=== PATIENT | female | born 1935 | race Caucasian/White ===

== ENCOUNTER 2020-12-08 09:02 | Emergency (ER) | payer MEDICARE ==
[~2020-12-08] VITALS: Ht 162.6 cm; Wt 68.4 kg
[2020-12-08 09:03] VITALS: BP 158/80
--- NOTE | 2020-12-08 09:12 | NUR ---
PT AMBULATORY TO ROOM FROM TRIAGE. PT C/O RIGHT EYE PAIN WITH PERIORBITAL TENDERNESS FOR THE LAST 2 DAYS. PT HAS BEEN USING DROPS FOR THE LAST 4 WEEKS PER HER PCP, AND WAS TOLD TO DO WARM COMPRESSES BUT PAIN HAS INCREASED THE LAST 2 DAYS.
--- NOTE | 2020-12-08 09:24 | NUR ---
PA AT BS
[2020-12-08] MEDS ORDERED: FLUORESCEIN OPHTHALMIC 1 MG STRIP ONE (09:36)
[2020-12-08] MEDS ORDERED: PROPARACAINE OPHTH 0.5%, 15ML ONE (09:36)
[2020-12-08] MEDS ORDERED: PROPARACAINE OPHTH 0.5%, 15ML EACHEYE ONE (10:00)
[2020-12-08] MEDS ORDERED: PLEASE ENTER ALLERGIES MC SCH (10:00)
[2020-12-08] MEDS ORDERED: FLUORESCEIN OPHTHALMIC 1 MG STRIP EACHEYE ONE (10:00)
--- NOTE | 2020-12-08 10:01 | NUR ---
PT AMBULATORY WITH UPRIGHT STEADY GAIT TO GET VISUAL ACUITY CHECKED
--- NOTE | 2020-12-08 10:10 | NUR ---
PA AT BS FOR DC EDUCATION
--- NOTE | 2020-12-08 10:23 | NUR ---
Patient given discharge instructions and they have confirmed that they understand the instructions. Patient ambulatory with steady gait.
== END 2020-12-08 10:25 | disposition home or self-care (01) ==
LOC: ED 10:00
DX: H00.011 Hordeolum externum right upper eyelid (principal); I10 Essential (primary) hypertension; E78.00 Pure hypercholesterolemia, unspecified; K21.9 Gastro-esophageal reflux disease without esophagitis
CPT/HCPCS: 99283

== ENCOUNTER 2020-12-13 16:53 | Emergency (ER) | payer MEDICARE ==
[~2020-12-13] VITALS: Ht 162.6 cm; Wt 75.0 kg
[2020-12-13 17:15] VITALS: BP 159/85
== END 2020-12-13 20:14 | disposition home or self-care (01) ==
LOC: ED 16:54
DX: S83.92XA Sprain of unspecified site of left knee, initial encounter (principal); M25.462 Effusion, left knee; E78.00 Pure hypercholesterolemia, unspecified; K21.9 Gastro-esophageal reflux disease without esophagitis; I10 Essential (primary) hypertension; X50.0XXA Overexertion from strenuous movement or load, initial encounter; Y93.89 Activity, other specified; Y92.89 Other specified places as the place of occurrence of the external cause; Y99.8 Other external cause status
CPT/HCPCS: 99284